=== PATIENT | male | born 1955 | race Caucasian/White ===

== ENCOUNTER 2018-11-23 08:30 | Observation (INO) | payer BC ==
[2018-11-20 11:43] LABS: BASOPHILS % 0.4 % (0.0-1.0); EOSINOPHILS # (AUTO) 0.1 (0.0-0.4); EOSINOPHILS % 1.5 % (0.0-6.0); HEMATOCRIT 38.8 % (38.2-49.6); HEMOGLOBIN 13.6 g/dL (14.0-18.0); LYMPHOCYTES # (AUTO) 1.4 (1.0-3.2); LYMPHOCYTES % 19.5 % (18.0-39.1); MEAN CORPUSCULAR HEMOGLOBIN 30.4 pg (28-32); MEAN CORPUSCULAR HGB CONC 35.1 g/dL (31-35); MEAN CORPUSCULAR VOLUME 86.6 fL (81-99); MONOCYTES # (AUTO) 0.5 (0.2-0.8); MONOCYTES % 7.6 % (4.4-11.3); NEUTROPHILS % 70.7 % (38.7-80.0); PLATELET COUNT 174 x10e3/uL (140-360); RED BLOOD COUNT 4.48 x10e6/uL (4.3-5.7); RED CELL DISTRIBUTION WIDTH 13.6 % (11.7-14.4)
[2018-11-20 12:00] LABS: PROTHROMBIN TIME 13.7 seconds (11.9-14.5)
[2018-11-20 12:01] LABS: PARTIAL THROMBOPLASTIN TIME 26.9 seconds (23.8-35.5)
--- NOTE | 2018-11-20 12:06 | Diagnostic Imaging Report ---
EXAM: CHEST 2 VIEWS, PA and lateral DATE: 11/20/2018 Time stamp on exam: 11:34 AM INDICATION: Preoperative COMPARISON: None FINDINGS: LINES/TUBES: None LUNGS: No consolidations or edema. PLEURA: No effusions or pneumothorax. Pleural calcification in the left diaphragmatic pleura. HEART AND MEDIASTINUM: Normal size and contour. BONES AND SOFT TISSUES: No acute findings. Degenerative changes of the spine. IMPRESSION: No acute thoracic abnormality. Signed by: Dr. Adelso Hull DO on 11/20/2018 12:03 PM
[2018-11-20 12:09] LABS: ALANINE AMINOTRANSFERASE 23 IU/L (0-55); ALBUMIN 3.7 g/dL (3.5-5.0); ALBUMIN/GLOBULIN RATIO 1.2 (0.8-2.0); ALKALINE PHOSPHATASE 91 IU/L (40-150); ANION GAP 10.2 mmol/L (8-16); BLOOD UREA NITROGEN 18 mg/dL (7-26); BUN/CREATININE RATIO 16 (6-25); CALCIUM 9.3 mg/dL (8.4-10.2); CARBON DIOXIDE 25 mmol/L (22-29); CHLORIDE 104 mmol/L (98-107); CREATININE, SERUM 1.12 mg/dL (0.72-1.25); EST GLOMERULAR FILTRATION RATE > 60 ML/MIN (60-); GLUCOSE 229 mg/dL (74-118); POTASSIUM 4.2 mmol/L (3.5-5.1); SODIUM 135 mmol/L (136-145)
[~2018-11-23] VITALS: Ht 172.7 cm; Wt 125.8 kg
[~2018-11-23 08:30] MED LIST: ATORVASTATIN CA20 MG PO; CARTIA XT240 MG; ELIQUIS; IBUPROFEN200 MG PO; MAGNESIUM; METOPROLOL; METRONIDAZOLE500 MG PO; VITAMIN B; VITAMIN C60 MG; VITAMIN D400 UNIT PO; VITAMIN E400 UNI1; [UNRECOGNIZED DRUG - OTHER]
--- OUTSIDE RECORDS SUMMARY | 2018-11-23 08:40 | XMS REPORT ---
Author Author [facility] Address Unknown Phone Unavailable Care Team Providers Care Die Designer Name Role Phone MIRANDA BROOKS Unavailable Unavailable Problems This patient has no known problems. Allergies, Adverse Reactions, Alerts This patient has no known allergies or adverse reactions. Medications This patient has no known medications. Results Test Description Test Time Test Comments Text Results Atomic Results Result Comments CHEST 2 VIEWS 2018-11-20 12:02:00 [place] [id number] Patient Name: LISSA BARRAGAN MR #: [id number] : 1955 Age/Sex: 63/M Req #: [id number] Adm Physician: Ordered by: MIRANDA BROOKS MD Report #: [id number] Location: OR Room/Bed: Procedure: [id number] DX/CHEST 2 VIEWS Exam Date: 11/20/18 Exam Time: 1135 REPORT STATUS: Signed EXAM: CHEST 2 VIEWS, PA and lateral DATE: 11/20/2018 Time stamp on exam: 11:34 AM INDICATION: Preoperative COMPARISON: None FINDINGS: LINES/TUBES: None LUNGS: No consolidations or edema. PLEURA: No effusions or pneumothorax. Pleural calcification in the left diaphragmatic pleura. HEART AND MEDIASTINUM: Normal size and contour. BONES AND SOFT TISSUES: No acute findings. Degenerative changes of the spine. IMPRESSION: No acute thoracic abnormality. Signed by: Dr. Nan Aldana DO on 11/20/2018 12:03 PM Dictated By: NAN ALDANA DO 1203 Transcribed By: JOSE on 11/20/18 1203 COPY TO: MIRANDA BROOKS MD
--- OUTSIDE RECORDS SUMMARY | 2018-11-23 08:40 | XMS REPORT | Clinical Summary ---
Author Author [facility] Address Unknown Phone Unavailable Care Team Providers Care Psych Sales Specialist Name Role Phone Semaj Vazquez MD PCP Unavailable Allergies No Known Allergies Medications End Date Status Medication Sig Dispensed Refills Start Date Active KLOR-CON M20 20 mEq CR 0 tablet 7 Active tamsulosin (FLOMAX) 0.4 1 mg capsule,extended 7 release 24hr Active aspirin (ECOTRIN) 81 MG Take 81 mg by 0 enteric coated tablet mouth daily. Active magnesium gluconate Take 500 mg 0 (MAGONATE) 500 mg tablet by mouth tablet daily. Active CARTIA XT 240 mg 24 hr Take 1 3 capsule capsule by 7 mouth daily. Active b complex vitamins (B Take 1 tablet 0 COMPLEX 1) tablet by mouth daily. Active apixaban (ELIQUIS) 5 mg Take 1 tablet 60 tablet 5 tablet (5 mg total) 7 by mouth 2 (two) times a day. Active metFORMIN XR Take 1 tablet 30 tablet 5 (GLUCOPHAGE-XR) 750 mg 24 (750 mg 7 hr tablet total) by mouth daily. 07/27/2018 atorvastatin (LIPITOR) 40 Take 1 tablet 90 tablet 1 MG tablet (40 mg total) 7 by mouth daily. 07/27/2018 furosemide (LASIX) 20 mg Take 1 tablet 90 tablet 1 tablet (20 mg total) 7 by mouth daily. Active Problems Problem Noted Date Paroxysmal atrial fibrillation 04/11/2017 Benign hypertensive heart disease without CHF 04/11/2017 Pure hypercholesterolemia 04/11/2017 Type 2 diabetes mellitus without complication, without long-term current 04/11/2017 use of insulin Influenza vaccination administered at current visit 04/11/2017 Abnormal PSA 04/11/2017 Pneumococcal vaccination administered at current visit 04/11/2017 Colon cancer screening 12/23/2016 Immunizations Name Dates Previously Given Next Due INFLUENZA QUAD PF 04/11/2017 Pneumococcal 04/11/2017 Polysaccharide Family History Medical History Relation Name Comments Colon cancer Brother Prostate cancer Brother Stroke Mother Breast cancer Sister Relation Name Status Comments Brother Alive Father Mother Sister Alive Social History Date Tobacco Use Types Packs/Day Years Used Never Smoker Smokeless Tobacco: Snuff Current User Alcohol Use Drinks/Week oz/Week Comments Yes OCC Sex Assigned at Date Recorded Not on file Industry Job Start Date Occupation Not on file Not on file Not on file Travel End Travel History Travel Start No recent travel history available. Last Filed Vital Signs Not on file Plan of Treatment Health Maintenance Due Date Last Done Comments DIABETIC RETINAL EYE EXAM 1955 DIABETIC FOOT EXAM 1965 COLON CANCER SCREENING 2005 SHINGLES VACCINES (#1) 2005 URINE MICROALBUMIN 04/14/2018 04/14/2017 INFLUENZA VACCINE 02/28/2019 04/11/2017 Results Not on fileafter 11/22/2017 Insurance Payer Benefit Subscriber ID Type Phone Address Plan / Group BCBS BCBS xxxxxxxxxxxx PPO CHOICE PPO/[employer] PPO (Home) [place] [address] Advance Directives Patient has advance care planning documents on file. For more information, suresh alanis contact: Michael Hough [address] [place] [address]
[2018-11-23] MEDS ORDERED: CEFOXITIN 1GM/ D5W 50ML 100 ML IV ONE (08:44)
[2018-11-23] MEDS ORDERED: INSULIN REGULAR, HUMAN 100 UNIT/1 ML 3ML VIAL ONE (10:35)
[2018-11-23] MEDS ORDERED: HYDROCODONE/APAP 7.5MG-325MG 1 EA TAB PO PRN (12:45)
--- OUTSIDE RECORDS SUMMARY | 2018-11-23 12:59 | XMS REPORT | Clinical Summary ---
Author Author [facility] Address Unknown Phone Unavailable Care Team Providers Care Cutting Machine Offbearer Name Role Phone Semaj Vazquez MD PCP [...] xxxxxxxxxxxx PPO CHOICE PPO/[employer] PPO (Home) [place] [address] Advance Directives Patient has advance care planning documents on file. For more information, suresh alanis contact: Michael Hough [address] [place] [address]
--- NOTE | 2018-11-23 13:12 | NUR ---
Medical consultation Requesting physician: Reason: med mgmt cc: elevated PSA HPI: 63yoM, PCP Dr.Gregory aVzquez, underwent prostate bx by for elevated PSA with urinary frequency and recurrent prostate infections. Currently pain 2/10. NO other symptoms. Pt last took eliquis 6 days ago. PMH: HTN, HLD, A.fib, elevated PSA 9.2, prostatitis, urianary frequency, cellulitis, Obesity, DM2, OA PSHx: left knee arthroscopy, colonoscopy Allergies; see emr Fh/SH; ; no cigs/illicits. Prostate CA in brother; breast cancer in sister; colon cancer in brother, and lung CA/mesothelioma/asbestosis in father; Meds; see MAR ROS: no f/c/s/N/V/D/WILSON/vision changes/cp/sob/back pain/skin rash/ v/s; rev'd PE tired appearing anicteric ns1s2 mod bs soft nt nd NAVARRETE with pink-colored urine no e/t a&ox3; obrien skin dry n. affect labs/med; rev'd A/P: 63yoM Elevated PSA BPH A.fib HTN HLD Obesity DM2 PLAN f/u bx results resume home meds except eliquis; plan to restart in about 3 days (should be home then) hba1c/lipids PT consult f/u labs; will need ADA diet Monty Medina MD, PhD.
[2018-11-23 13:26] VITALS: BP 141/76
--- NOTE | 2018-11-23 13:32 | NUR ---
Recvd patient from PACU, AAOx3, Assisted him to bed, not in any distress, Velasquez's catheter is intact, on IV fluids. call light in reach, keep monitoring
[2018-11-23 15:11] VITALS: BP 141/76
[2018-11-23 15:31] VITALS: BP 156/87
[2018-11-23] MEDS: METRONIDAZOLE 500 MG TAB PO SCH ×2 (15:52→21:01)
[2018-11-23] MEDS: CEFOXITIN 1GM/ D5W 50ML 50 ML IV SCH (18:45)
--- NOTE | 2018-11-23 19:00 | NUR ---
Got report from previous nurse. Call light within reach. Patient in bed.
[2018-11-23] MEDS ORDERED: PROPOFOL IV EMULSION 10 MG/ML 20 ML VIAL ONE (19:23)
[2018-11-23] MEDS ORDERED: LIDOCAINE HCL 2% LOCAL INJ 5 ML SDV VIAL INJ ONE (19:23)
[2018-11-23 20:00] VITALS: BP_SYST 101; BP_SYST 165; BP_DIAS 61; BP_DIAS 90
--- NOTE | 2018-11-23 20:16 | NUR ---
Called and talked to Dr. Medina about patient sugar being 217 and blood pressure of 165/90. Dr. Medina order Humulin R sliding scale low dose and labetalol 5 mg
[2018-11-23 20:22] VITALS: BP 165/90
[2018-11-23] MEDS ORDERED: DEXTROSE 50% SYRINGE 50 ML IV PRN (20:30)
[2018-11-23] MEDS: INSULIN REGULAR, HUMAN 100 UNIT/1 ML 3ML VIAL SQ SCH (20:45)
[2018-11-23] MEDS ORDERED: ATORVASTATIN 40 MG TAB PO SCH (21:00)
[2018-11-23] MEDS ORDERED: ATORVASTATIN 20 MG TAB PO SCH (21:00)
[2018-11-23] MEDS: LABETALOL HCL 5 MG/ML 20ML VIAL IV PRN (21:04)
--- NOTE | 2018-11-23 22:02 | Operative Report ---
DATE OF PROCEDURE: 11/23/2018 SURGEON: Fernando Santana MD PREOPERATIVE DIAGNOSIS: Elevated prostate-specific antigen. POSTOPERATIVE DIAGNOSIS: Elevated prostate-specific antigen. OPERATION PERFORMED: Ultrasound-directed transrectal prostate biopsy. ANESTHESIA: IV sedation monitored anesthesia care. INDICATIONS: This patient is a 63-year-old white male, who had a prostate-specific antigen of 9.2 and was referred for further evaluation and treatment. Physical examination revealed a moderately obstructing prostate, a moderately trabeculated bladder and a nodular prostate. The patient has a history of atrial fibrillation, had cardiac clearance from Dr. Shields. He had been on Eliquis and Eliquis was stopped five days prior to the surgery. For further details, please refer to the history and physical. The procedure was done in following fashion. DESCRIPTION OF THE PROCEDURE: The patient was taken to the operating room, placed under IV sedation, monitored anesthesia care in the lateral decubitus position with the right side up. An ultrasound scan of the prostate was performed. This revealed about 26 g prostate. Internal calcifications were identified. The seminal vesicles were identified and appeared normal. Sextant biopsies of prostate were performed using the Bard biopsy gun through the ultrasound probe. Specimens were taken from the right base lateral, then right base medial, then right mid lateral, then right mid medial, then right apex lateral, then right apex medial, then left base lateral, then left base medial, then left mid lateral, then left mid medial, then left apex lateral, then left apex medial. Once this was accomplished, the ultrasound probe was removed. The patient was returned to supine position. A 16-Greenlandic Velasquez catheter inserted. The patient tolerated the procedure well and left the operating room in good condition. My plan is to watch the patient overnight on IV antibiotics and Dr. Monty Medina is being consulted for medical management in view of his multiple medical problems. Fernando Santana MD BRIAN/MODL /[id number]
[2018-11-23] MEDS: LACTATED RINGER'S 1,000 ML IV SCH (22:33)
[2018-11-24] VITALS: BP 140/94
[2018-11-24] MEDS: CEFOXITIN 1GM/ D5W 50ML 50 ML IV SCH ×2 (00:24→06:00)
[2018-11-24 04:00] VITALS: BP 138/91
--- NOTE | 2018-11-24 07:12 | NUR ---
Gave report to oncoming nurse. Patient in bed. Call light within reach.
[2018-11-24 08:08] VITALS: BP 173/94
[2018-11-24] MEDS ORDERED: VITAMIN E 400 UNIT CAP PO SCH (09:00)
[2018-11-24] MEDS: INSULIN REGULAR, HUMAN 100 UNIT/1 ML 3ML VIAL SQ SCH (09:07)
[2018-11-24] MEDS: METRONIDAZOLE 500 MG TAB PO SCH (09:11)
[2018-11-24] MEDS: LACTATED RINGER'S 1,000 ML IV SCH (09:11)
[2018-11-24 09:25] VITALS: BP 173/94
[2018-11-24] MEDS: LABETALOL HCL 5 MG/ML 20ML VIAL IV PRN (09:29)
[2018-11-24] MEDS ORDERED: KEFLEX500 MG PO (11:44)
[2018-11-24 11:48] VITALS: BP 154/81
--- NOTE | 2018-11-24 13:39 | NUR ---
SOCIAL WORK INITIAL ASSESSMENT Hydrologist to bedside to discuss plan of care with patient/family. CM/SW role and care transitions discussed. Anticipated discharge plan discussed along with duration of care. CM/SW discussed patients right to make decisions in care. CM/SW work hours given. Patient lives: IN OWN HOUSE WITH FAMILY Admit/Transfer: VIA ED POA/Emergency contact: CALLUM [phone] Current/Previous Home Health: NONE PCP/Follow-up Care: AMARI Current/Previous DME: NONE Other Services: NONE Employment Status: [employer] Areas of Concerns: DIPS DAILY Referral Needs: NONE Education Needs: NONE IMM/NIEVES given and signed (if applicable): NA Goal for discharge: RETURN HOME CM/SW left business card at the bedside with contact information. Name and number was also written on the patients whiteboard. Patient verbalized understanding of discussion. CM will follow-up with ongoing discharge and transition of care needs.
== END 2018-11-24 13:42 | disposition home or self-care (01) ==
LOC: OR 08:30 → PACU V 12:38 → IMCU 13:23
PROVIDERS: ADMIT Urology; ATTEND Urology
DX: N40.3 Nodular prostate with lower urinary tract symptoms (principal); M19.90 Unspecified osteoarthritis, unspecified site; I83.893 Varicose veins of bilateral lower extremities with other complications; I48.91 Unspecified atrial fibrillation; E78.00 Pure hypercholesterolemia, unspecified; R39.2 Extrarenal uremia; R35.1 Nocturia
CPT/HCPCS: 36415 ×2; 55700; 71046; 76872; 80053; 82948; 85025; 85610; 85730; 88305; 93005; G0378 ×2; J1817; J2001; J2704; J3490; J7121 ×2